=== PATIENT | male | born 1975 | race Caucasian/White ===

== ENCOUNTER 2018-11-03 12:19 | Emergency (ER) | payer OTHER, SELFPAY ==
[2018-11-03 12:20] VITALS: BP 197/106; PULSE 114; RESP 18; TEMP 36.6; O2SAT 98; BMI 33.9
[2018-11-03 12:31] VITALS: BMI 33.6
[2018-11-03 12:35] LABS: Bedside Glucose 122 mg/dL (70-110)
--- NOTE | 2018-11-03 13:20 | ED.VIS.GEN ---
History of Present Illness Chief Complaint: Neuro S/Sx Narrative: Patient presenting for evaluation secondary to right-sided facial numbness and facial droop. Patient states that over the course this week he first developed some right-sided facial numbness. He reports that he then developed facial droop, and now was having difficulty with speaking, difficulty with drinking as liquids or running out of his mouth. He also feels that he is not able to blink. Patient states that he is not having any sort of speech difficulty as far as a aphasia, no limb numbness or weakness, no gait instability. He denies any rashes or fevers associated with this. No prior similar episodes in the past. Review of systems otherwise negative. Past Medical History - Allergies and Home Meds Allergies/Adverse Reactions: Allergies No Known Allergies Allergy (Verified 11/03/18 12:23) Primary Care Physician: Leonardo Cobb MD [Primary Care Provider] - 1 Week Past Medical History: - - Hypertension and hyperlipidemia Smoking Status: Former smoker Review of Systems All systems negative except as indicated General: Denies: Fever Neurological: Reports: Weakness, Numbness Physical Exam Vital Signs/Narrative: Vital Signs Temp Pulse Resp BP Pulse Ox 11/03/18 12:20 98 F 114 H 18 197/106 H 98 Inital Vital Signs reviewed: Yes General: Well nourished, Well developed, No Acute Distress Head: Normocephalic, Atraumatic Eyes: Perrl, EOMI ENT: - - Patient has inability to move the right side of his face or blank, and is not able to raise his right eyebrow or wrinkle his forehead on that side. He reports intact sensation. 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 Patient was educated on protecting his eyes and usage of artificial tears as well as an eye patch at night. Patient will be placed on a prednisone taper. He will follow-up with primary care. Additionally, the patient was noted to be significantly hypertensive and states that he is never been on antihypertensives. I do not believe that that is the cause of his symptoms, but I believe that he warrants treatment with antihypertensives he was started on a course of lisinopril. ED Disposition - Plan for ED Patient: Disposition: Home or Assisted Living Diagnosis: Keane's palsy, Hypertension Instructions: Keane's Palsy Prescriptions: Prednisone 10 mg PO UD #33 tab Prescription Printed Lisinopril [Prinivil] 10 mg PO DAILY #30 tab Prescription Printed Referrals: Leonardo Cobb MD [Primary Care Provider] - 1 Week
[2018-11-03 13:27] VITALS: BP 173/98
== END 2018-11-03 13:35 | disposition home or self-care (01) ==
PROVIDERS: Emergency Provider Emergency Medicine; Family Provider Family Medicine; PCP Family Medicine
DX: G51.0 Bell's palsy (principal); I10 Essential (primary) hypertension; E78.5 Hyperlipidemia, unspecified; Z87.891 Personal history of nicotine dependence
CPT/HCPCS: 82962; 99282